=== PATIENT | female | born 1985 | race Caucasian/White ===

== ENCOUNTER 2017-05-29 19:14 | Inpatient (IN) | payer MEDICAID ==
[2017-05-29] MEDS ORDERED: Sodium Chloride 0.9% 1,000 ML IV ONE ×2 (19:35)
--- NOTE | 2017-05-29 19:37 | C.PDOC ---
History Of Present Illness 31 y/o female, whose PMH includes anemia, and HTN, who presents to the ED complaining of left sided abdominal pain since a few days associated with fever and diarrhea. Patient denies dysuria, hematuria, shortness of breath, or other complaints. Chief Complaint (Nursing): Abdominal Pain History Per: Patient History/Exam Limitations: no limitations Onset/Duration Of Symptoms: Days Current Symptoms Are (Timing): Still Present Location Of Pain/Discomfort: LLQ Radiation Of Pain To:: None Associated Symptoms: Fever, Diarrhea Alleviating Factors: None Abnormal Vaginal Bleeding: No Last Menstral Period: 05/01/2017 Past Medical History Reviewed: Historical Data, Nursing Documentation, Vital Signs Vital Signs: Last Vital Signs Temp 99.4 F 05/29/17 22:49 Pulse 155 H 05/29/17 22:49 Resp 20 05/29/17 22:49 BP 137/79 05/29/17 22:49 Pulse Ox 99 05/29/17 22:49 - Medical History PMH: Anemia, Bipolar Disorder, Depression, HTN Denies: Chronic Kidney Disease Surgical History: Family History: States: Unknown Family Hx - Social History Hx Tobacco Use: Yes ("some days") Hx Alcohol Use: Yes Hx Substance Use: No - Immunization History Hx Tetanus Toxoid Vaccination: Yes Hx Influenza Vaccination: Yes Hx Pneumococcal Vaccination: No Review Of Systems Except As Marked, All Systems Reviewed And Found Negative. Constitutional: Positive for: Fever Cardiovascular: Negative for: Chest Pain Respiratory: Negative for: Shortness of Breath Gastrointestinal: Positive for: Abdominal Pain (left sided ), Diarrhea Physical Exam - Physical Exam Appears: Well, Non-toxic, No Acute Distress Skin: Normal Color, Warm, Dry Head: Atraumatic, Normacephalic Eye(s): bilateral: Normal Inspection, PERRL, EOMI Cardiovascular: Rhythm Regular Respiratory: Normal Breath Sounds, No Rales, No Rhonchi, No Wheezing Gastrointestinal/Abdominal: Bowel Sounds (active ), Tenderness (left lower quadrant tenderness), No Distention, No Guarding, No Rebound Neurological/Psych: Oriented x3, Normal Motor ED Course And Treatment - Laboratory Results Result Diagrams: 05/29/17 19:41 05/29/17 19:41 O2 Sat by Pulse Oximetry: 95 (room air) Pulse Ox Interpretation: Normal Medical Decision Making Medical Decision Making: Plans: -- CT abdomen and pelvis -- Labs -- Urinalysis Disposition Discussed With DrPalomo: Gasper Anne Doctor Will See Patient In The: Hospital Counseled Patient/Family Regarding: Diagnosis - Disposition Disposition: HOSPITALIZED Disposition Time: 23:12 Condition: STABLE Forms: [facility] (Mauritanian) - POA Present On Arrival: None - Clinical Impression Clinical Impression: Pyelonephritis - Scribe Statement The provider has reviewed the documentation as recorded by the Bety Mosesibe Attestation: Bre Saxena MD Scribe Attestation: All medical record entries made by the Bety were at my direction and personally dictated by me. I have reviewed the chart and agree that the record accurately reflects my personal performance of the history, physical exam, medical decision making, and the department course for this patient. I have also personally directed, reviewed, and agree with the discharge instructions and disposition.
[2017-05-29 19:44] LABS: BASO % 0.2 % (0.0-2.0); EOS % 0.1 % (0.0-4.0); HEMOGLOBIN 12.1 g/dL (11.0-16.0); LYMPH # 0.7 K/uL (1.0-4.3); LYMPH % 4.3 % (20.0-40.0); MEAN CORPUSCULAR HEMOGLOBIN 31.1 pg (27.0-31.0); MEAN CORPUSCULAR HGB CONC 34.6 g/dL (33.0-37.0); MEAN PLATELET VOLUME 8.6 fL (7.2-11.7); MONO # 1.1 K/uL (0.0-0.8); MONO % 6.6 % (0.0-10.0); NEUT # 14.3 K/uL (1.8-7.0); NEUT % 88.8 % (50.0-75.0); PLATELET COUNT 227 K/uL (130-400); RBC 3.88 Mil/uL (3.80-5.20); RED CELL DISTRIBUTION WIDTH 14.1 % (11.5-14.5)
[2017-05-29] MEDS ORDERED: Sodium Chloride 0.9% 2,000 ML ONE (19:44)
[2017-05-29] MEDS ORDERED: Iohexol 240 (50 ml) PO ONE (19:45)
[2017-05-29] MEDS ORDERED: Iohexol 240 (50 ml) ONE (19:55)
[2017-05-29 19:58] LABS: SQUAMOUS EPITHIAL 5 /hpf (0-5); URINE BACTERIA RARE (<OCC); URINE BILIRUBIN NEGATIVE (NEGATIVE); URINE BLOOD 1+ (NEGATIVE); URINE CLARITY Hazy (Clear); URINE COLOR Red (YELLOW); URINE GLUCOSE (UA) NORMAL (Normal); URINE LEUKOCYTE ESTERASE 2+ Leu/uL (Negative); URINE PROTEIN 1+ mg/dL (NEGATIVE); URINE UROBILINOGEN NORMAL mg/dL (0.2-1.0)
[2017-05-29 20:00] LABS: HCG,QUALITATIVE URINE NEGATIVE (NEGATIVE)
[2017-05-29 20:04] LABS: ALB/GLOB RATIO 1.2 (1.0-2.1); ALBUMIN 4.3 g/dL (3.5-5.0); ALT/SGPT 56 U/L (9-52); AST/SGOT 97 U/L (14-36); BLOOD UREA NITROGEN 6 mg/dL (7-17); CALCIUM 8.8 mg/dl (8.6-10.4); GFR AFRICAN-AMERICAN > 60; GFR NON-AFRICAN AMERICAN > 60; LIPASE 75 U/L (23-300)
[2017-05-29 20:19] LABS: ANISOCYTOSIS SLIGHT; BANDS 2 % (0-2); HYPOCHROMIC SLIGHT; LARGE PLATELETS PRESENT; LYMPHOCYTE 2 % (20-40); MICROCYTOSIS SLIGHT; MONOCYTE 7 % (0-10); NEUTROPHIL 89 % (50-75); PLATELET ESTIMATE NORMAL (NORMAL); POIKILOCYTOSIS SLIGHT; TOTAL CELLS COUNTED 100
[2017-05-29] MEDS ORDERED: Iodixanol 320 MG/ML 100 ML BOTTLE IV ONE (20:39)
[2017-05-29] MEDS ORDERED: Ciprofloxacin 400mg/200ml D5W 400 MG/200 ML BAG IVPB STA (20:39)
[2017-05-29] MEDS ORDERED: Ciprofloxacin 400mg/200ml D5W 400 MG/200 ML BAG IVPB ONE (20:46)
--- NOTE | 2017-05-29 22:43 | CT ---
EXAM: CT Abdomen and Pelvis With Intravenous Contrast CLINICAL HISTORY: 31 years old, female; Pain; Abdominal pain; Patient HX: 8; Additional info: Abd pain TECHNIQUE: Axial computed tomography images of the abdomen and pelvis with intravenous contrast. All CT scans at this facility use one or more dose reduction techniques, viz.: automated exposure control; ma/kV adjustment per patient size (including targeted exams where dose is matched to indication; i.e. head); or iterative reconstruction technique. Coronal and sagittal reformatted images were created and reviewed. CONTRAST: 100 mL of [id number] administered intravenously. COMPARISON: CT - ABD PELVIS W/O PO OR IV CONT 2015-11-06 11:58 FINDINGS: Limitations: Motion artifact - mild to moderate. Lower thorax: Probable small hiatal hernia. ABDOMEN: Liver: Unremarkable. No mass. Gallbladder and bile ducts: No calcified stones. No ductal dilation. Pancreas: No ductal dilation. No mass. Spleen: No splenomegaly. Adrenals: No mass. Kidneys and ureters: Minimal stranding about kidneys. Few ill-defined peripheral areas of decreased attenuation within kidneys. No hydronephrosis. Mild urothelial enhancement of renal pelvis and ureters, bilaterally. Stomach and bowel: No definite mural thickening. No obstruction. Appendix: Normal caliber. No inflammation. PELVIS: Bladder: Unremarkable. Reproductive: 1.7 x 1.4 x 1.6 cm peripherally enhancing hypodensity with slightly crenulated margins within LEFT ovary. Small right ovarian follicle. ABDOMEN and PELVIS: Intraperitoneal space: Trace free fluid within pelvis. No free air. Bones/joints: No acute fracture. Soft tissues: Tiny umbilical hernia containing fat. Vasculature: Unremarkable. No aneurysm. Lymph nodes: No pathologically enlarged lymph nodes. IMPRESSION: 1. Findings compatible with pyelonephritis/ureteritis. 2. Involuting or ruptured LEFT ovarian follicle/cyst. 3. Incidental/non-acute findings are described above.
--- NOTE | 2017-05-29 23:42 | CP.PCM.HP ---
<Anamika Sood - Last Filed: 05/30/17 04:05> History of Present Illness - History of Present Illness History of Present Illness: HPI: Patient is a 31 year old female with a past medical history of HTN , bipolar disorder, anxiety, and insomnia, who presents to the ED with complaints of fever, nausea, left abdominal/pelvic pain, headaches, dysuria, increased frequency, and palpitations for the past 3 days. Patient also complains of diarrhea that started approximately 1 week ago. She says she has two episodes of diarrhea daily. She tried taking ibuprofen today, 2 pills in the morning and 2 in the afternoon, with minimal relief. Patient denies chest pain, cough, vomiting, chills, hematuria, hematochezia, rashes, recent illness or sick contacts. Patient's , Nitin, at bedside contributing to history. PMD: none PMHx: HTN, Bipolar disorder, anxiety, insomnia. (previously treated 4 years ago , stopped medications when moving to the ) SurgHx: cesarian section (2001) FamHx: Grandmother- Heart disease, Thyroid disease SocHx: social tobacco and alcohol use; denies drug use; lives in [place] with , Nitin; unemployed. Allergies: NKDA, pork Medications: none Present on Admission - Present on Admission Any Indicators Present on Admission: No Review of Systems - Constitutional Constitutional: Fever, Headache, Weakness. absent: Anorexia, Chills - EENT Eyes: Change in Vision Ears: Dizziness Nose/Mouth/Throat: Sore Throat - Cardiovascular Cardiovascular: Dyspnea, Palpitations. absent: Chest Pain, Leg Edema - Respiratory Respiratory: Dyspnea. absent: Cough, Hemoptysis, Excessive Mucous Production - Gastrointestinal Gastrointestinal: Abdominal Pain (B/L lower quadrant L>R), Diarrhea, Nausea. absent: Constipation, Hematemesis, Hematochezia, Melena, Vomiting - Genitourinary Genitourinary: Dysuria, Urinary Frequency. absent: Hematuria - Musculoskeletal Musculoskeletal: Back Pain (lower back pain b/l) - Integumentary Integumentary: absent: Rash - Neurological Neurological: Dizziness, Headaches - Endocrine Endocrine: Palpitations Past Patient History - Infectious Disease Hx of Infectious Diseases: None - Past Social History Smoking Status: Current Some Days Smoker - CARDIAC Hx Hypertension: Yes - PULMONARY Hx Respiratory Disorders: Yes Hx Tuberculosis: Yes (treated 2000) - NEUROLOGICAL Hx Neurological Disorder: No - HEENT Hx HEENT Problems: No - RENAL Hx Chronic Kidney Disease: No - ENDOCRINE/METABOLIC Hx Endocrine Disorders: No - HEMATOLOGICAL/ONCOLOGICAL Hx Anemia: Yes - INTEGUMENTARY Hx Dermatological Problems: No - MUSCULOSKELETAL/RHEUMATOLOGICAL Hx Musculoskeletal Disorders: Yes Hx Back Pain: Yes - GASTROINTESTINAL Hx Gastrointestinal Disorders: No - GENITOURINARY/GYNECOLOGICAL Hx Genitourinary Disorders: No - PSYCHIATRIC Hx Bipolar Disorder: Yes Hx Depression: Yes Hx Substance Use: No - SURGICAL HISTORY Hx Surgeries: Yes Hx Section: Yes - ANESTHESIA Hx Anesthesia: Yes Hx Anesthesia Reactions: No Meds Allergies/Adverse Reactions: Allergies Allergy/AdvReac Type Severity Reaction Status Date / Time PORK AdvReac VOMITING Verified 05/29/17 19:21 Physical Exam - Constitutional Appears: No Acute Distress - Head Exam Head Exam: ATRAUMATIC, NORMAL INSPECTION - Eye Exam Eye Exam: EOMI, Normal appearance, PERRL - ENT Exam ENT Exam: Mucous Membranes Moist - Respiratory Exam Respiratory Exam: Clear to Auscultation Bilateral, NORMAL BREATHING PATTERN. absent: Rales, Rhonchi, Wheezes, Respiratory Distress - Cardiovascular Exam Cardiovascular Exam: Tachycardia, +S1, +S2 - GI/Abdominal Exam GI & Abdominal Exam: Normal Bowel Sounds, Soft, Tenderness (B/L lower quadrant and pelvic pain with palpation, L>R). absent: Distended, Firm - Extremities Exam Extremities exam: Positive for: tenderness (left plantar- tender to palpation of the calcaneus and arch.), pedal pulses present. Negative for: calf tenderness, pedal edema - Back Exam Back exam: tenderness (lower back/lumbar region, pain with palpation- b/l, midline). absent: rash noted - Neurological Exam Neurological exam: Alert, Oriented x3 - Psychiatric Exam Psychiatric exam: Normal Affect, Normal Mood - Skin Skin Exam: Dry, Intact, Normal Color, Warm Results - Vital Signs Recent Vital Signs: Last Vital Signs Temp 103.5 F H 05/29/17 23:28 Pulse 145 H 05/29/17 23:28 Resp 24 05/29/17 23:28 BP 137/79 05/29/17 23:28 Pulse Ox 96 05/29/17 23:28 - Labs Result Diagrams: 05/29/17 19:41 05/29/17 19:41 Labs: Laboratory Results - last 24 hr 05/29/17 05/29/17 05/29/17 19:41 19:41 19:41 WBC 16.0 H D RBC 3.88 Hgb 12.1 Hct 34.9 MCV 90.0 D MCH 31.1 H MCHC 34.6 RDW 14.1 Plt Count 227 MPV 8.6 Neut % (Auto) 88.8 H Lymph % (Auto) 4.3 L [place] % (Auto) 6.6 Eos % (Auto) 0.1 Baso % (Auto) 0.2 Neut # (Auto) 14.3 H Lymph # (Auto) 0.7 L [place] # (Auto) 1.1 H Eos # (Auto) 0.0 Baso # (Auto) 0.0 Neutrophils % (Manual) 89 H Band Neutrophils % 2 Lymphocytes % (Manual) 2 L Monocytes % (Manual) 7 Platelet Estimate Normal Large Platelets Present Hypochromasia (manual) Slight Poikilocytosis (manual Slight Anisocytosis (manual) Slight Microcytosis (manual) Slight Macrocytosis (manual) Slight Sodium 133 Potassium 3.5 L Chloride 101 Carbon Dioxide 19 L Anion Gap 16 BUN 6 L Creatinine 0.7 Est GFR ( Amer) > 60 Est GFR (Non-Af Amer) > 60 Random Glucose 103 Calcium 8.8 Total Bilirubin 1.5 H AST 97 H ALT 56 H D Alkaline Phosphatase 93 Total Protein 8.0 Albumin 4.3 Globulin 3.7 Albumin/Globulin Ratio 1.2 Lipase 75 Urine Color Red Urine Clarity Hazy Urine pH 7.0 Ur Specific [place] 1.006 Urine Protein 1+ H Urine Glucose (UA) Normal Urine Ketones Trace Urine Blood 1+ H Urine Nitrate Negative Urine Bilirubin Negative Urine Urobilinogen Normal Ur Leukocyte Esterase 2+ H Urine WBC (Auto) 119 H Urine RBC (Auto) 4 H Ur Squamous Epith Cells 5 Urine Bacteria Rare Urine HCG, Qual Negative Assessment & Plan (1) Pyelonephritis Assessment and Plan: Leukocytosis at admission: WBC 16, Bands 2 Febrile at admission 103.5. Tylenol given in the ED. Afebrile during examination Lactate: 1.9 UA: 2+ LE, 1+ protein/blood, trace ketones, WBC 119, RBC 4, squam 5 Abdomen/pelvis CT: finding compatible w/pyelonephritis/ureteritis; involuting or ruptured left ovarian follicle/cyst Urine cx: f/u results Blood cx: f/u results NS@100mls/hr Ibuprofen 400mg PO Q6 prn Ciprofloxacin 400mg IV Q12h (active 05/29/17) Status: Acute (2) Hypertension Assessment and Plan: Hx of HTN; patient has not taken medications for HTN 4 years. Currently normal blood pressure Monitor vitals. Will treat as needed. Status: Acute (3) Bipolar disorder Assessment and Plan: Hx of Bipolar Disorder; patient has not taken medications for 4 years. Status: Acute (4) Prophylactic measure Assessment and Plan: DVT: SCDs, Heparin 5000sc Q12h GI: Pepcid Heart Healthy Diet, 2gm Na Status: Acute <Gasper Anne - Last Filed: 05/30/17 06:33> Results - Vital Signs Recent Vital Signs: Last Vital Signs Temp 98.9 F 05/30/17 00:35 Pulse 108 H 05/30/17 00:35 Resp 20 05/30/17 00:35 BP 90/60 L 05/30/17 00:35 Pulse Ox 96 05/30/17 00:35 - Labs Result Diagrams: 05/29/17 19:41 05/29/17 19:41 Labs: Laboratory Results - last 24 hr 05/29/17 05/29/17 05/29/17 19:41 19:41 19:41 WBC 16.0 H D RBC 3.88 Hgb 12.1 Hct 34.9 MCV 90.0 D MCH 31.1 H MCHC 34.6 RDW 14.1 Plt Count 227 MPV 8.6 Neut % (Auto) 88.8 H Lymph % (Auto) 4.3 L [place] % (Auto) 6.6 Eos % (Auto) 0.1 Baso % (Auto) 0.2 Neut # (Auto) 14.3 H Lymph # (Auto) 0.7 L [place] # (Auto) 1.1 H Eos # (Auto) 0.0 Baso # (Auto) 0.0 Neutrophils % (Manual) 89 H Band Neutrophils % 2 Lymphocytes % (Manual) 2 L Monocytes % (Manual) 7 Platelet Estimate Normal Large Platelets Present Hypochromasia (manual) Slight Poikilocytosis (manual Slight Anisocytosis (manual) Slight Microcytosis (manual) Slight Macrocytosis (manual) Slight Sodium 133 Potassium 3.5 L Chloride 101 Carbon Dioxide 19 L Anion Gap 16 BUN 6 L Creatinine 0.7 Est GFR ( Amer) > 60 Est GFR (Non-Af Amer) > 60 POC Glucose (mg/dL) Random Glucose 103 Lactic Acid Calcium 8.8 Total Bilirubin 1.5 H AST 97 H ALT 56 H D Alkaline Phosphatase 93 Total Protein 8.0 Albumin 4.3 Globulin 3.7 Albumin/Globulin Ratio 1.2 Lipase 75 Urine Color Red Urine Clarity Hazy Urine pH 7.0 Ur Specific [place] 1.006 Urine Protein 1+ H Urine Glucose (UA) Normal Urine Ketones Trace Urine Blood 1+ H Urine Nitrate Negative Urine Bilirubin Negative Urine Urobilinogen Normal Ur Leukocyte Esterase 2+ H Urine WBC (Auto) 119 H Urine RBC (Auto) 4 H Ur Squamous Epith Cells 5 Urine Bacteria Rare Urine HCG, Qual Negative 05/29/17 05/30/17 23:51 00:04 WBC RBC Hgb Hct MCV MCH MCHC RDW Plt Count MPV Neut % (Auto) Lymph % (Auto) [place] % (Auto) Eos % (Auto) Baso % (Auto) Neut # (Auto) Lymph # (Auto) [place] # (Auto) Eos # (Auto) Baso # (Auto) Neutrophils % (Manual) Band Neutrophils % Lymphocytes % (Manual) Monocytes % (Manual) Platelet Estimate Large Platelets Hypochromasia (manual) Poikilocytosis (manual Anisocytosis (manual) Microcytosis (manual) Macrocytosis (manual) Sodium Potassium Chloride Carbon Dioxide Anion Gap BUN Creatinine Est GFR ( Amer) Est GFR (Non-Af Amer) POC Glucose (mg/dL) 116 H Random Glucose Lactic Acid 1.9 Calcium Total Bilirubin AST ALT Alkaline Phosphatase Total Protein Albumin Globulin Albumin/Globulin Ratio Lipase Urine Color Urine Clarity Urine pH Ur Specific [place] Urine Protein Urine Glucose (UA) Urine Ketones Urine Blood Urine Nitrate Urine Bilirubin Urine Urobilinogen Ur Leukocyte Esterase Urine WBC (Auto) Urine RBC (Auto) Ur Squamous Epith Cells Urine Bacteria Urine HCG, Qual Assessment & Plan - Date & Time Date: 05/30/17 (I have seen and examined the patient. I agree with the findings and plan of care as documented by Dr. Sood. Patient with pyelonephritis and positive for SIRS criteria. Monitor for hemodynamic stability. IVF. Cipro IV. Check urine and blood cultures. Lactate negative. Monitor for acute changes.) Time: 06:31 Attending/Attestation - Attestation I have personally seen and examined this patient.: Yes I have fully participated in the care of the patient.: Yes I have reviewed all pertinent clinical information: Yes
[2017-05-30 02:01] VITALS: RESP 20
[2017-05-30 08:07] LABS: BASO % 0.2 % (0.0-2.0); LYMPH # 0.6 K/uL (1.0-4.3); LYMPH % 4.1 % (20.0-40.0); MEAN CELL VOLUME 90.1 fL (81.0-99.0); MEAN CORPUSCULAR HEMOGLOBIN 30.8 pg (27.0-31.0); MEAN CORPUSCULAR HGB CONC 34.2 g/dL (33.0-37.0); MEAN PLATELET VOLUME 9.1 fL (7.2-11.7); MONO # 0.7 K/uL (0.0-0.8); MONO % 5.3 % (0.0-10.0); NEUT # 12.3 K/uL (1.8-7.0); NEUT % 90.4 % (50.0-75.0); PLATELET COUNT 191 K/uL (130-400); RBC 3.27 Mil/uL (3.80-5.20); RED CELL DISTRIBUTION WIDTH 13.7 % (11.5-14.5); WHITE BLOOD COUNT 13.6 K/uL (4.8-10.8)
[2017-05-30 08:23] LABS: HEMOGLOBIN 10.1 g/dL (11.0-16.0)
[2017-05-30 08:25] LABS: ALB/GLOB RATIO 1.1 (1.0-2.1); ALBUMIN 3.4 g/dL (3.5-5.0); ALT/SGPT 62 U/L (9-52); AST/SGOT 70 U/L (14-36); BLOOD UREA NITROGEN 3 mg/dL (7-17); CALCIUM 8.3 mg/dl (8.6-10.4); GFR AFRICAN-AMERICAN > 60; GFR NON-AFRICAN AMERICAN > 60
[2017-05-30] MEDS: Lactated Ringer's 1,000 ML IV SCH ×2 (08:30→17:45)
[2017-05-30 08:40] LABS: BANDS 2 % (0-2); LYMPHOCYTE 3 % (20-40); MONOCYTE 3 % (0-10); NEUTROPHIL 92 % (50-75); PLATELET ESTIMATE NORMAL (NORMAL); TOTAL CELLS COUNTED 100
[2017-05-30] MEDS ORDERED: Potassium Chloride 20 mEq ER Tab PO ONE ×3 (08:49→17:03)
--- NOTE | 2017-05-30 09:28 | CP.PCM.PN ---
Subjective - Date & Time of Evaluation Date of Evaluation: 05/30/17 Time of Evaluation: 09:25 - Subjective Subjective: Medical Attending Note: Patient seen and examined at bedside. Patient reports she had fever earlier. Patient denies chest pain, denies palptiations, denies nausea, denies vomitting, and reports right lower abdominal pain and left flank pain, reports dysuria, smelly urine, denies hematuria. Patient reports left flank pain started on . Patient reports she is menstruating female, last period, May 02 and expected to have her period today. Objective - Vital Signs/Intake and Output Vital Signs (last 24 hours): Temp Pulse Resp BP Pulse Ox 99.4 F 103 H 20 98/63 L 97 05/30/17 07:50 05/30/17 07:50 05/30/17 07:50 05/30/17 07:50 05/30/17 07:50 Intake and Output: 05/30/17 05/30/17 06:59 18:59 Intake Total 950 Balance 950 - Medications Medications: Current Medications Famotidine (Pepcid) 20 mg PO BID [facility] Heparin Sodium (Porcine) (Heparin) 5,000 units SC Q12 ZAINAB Ciprofloxacin (Cipro 400mg/200ml Dsw) 400 mg in 200 mls @ 133 mls/hr IVPB Q12H ZAINAB PRN Reason: Protocol Lactated Ringer's (Lactated Ringer's) 1,000 mls @ 100 mls/hr IV .Q10H ZAINAB Ibuprofen (Motrin Tab) 400 mg PO Q6 PRN PRN Reason: Fever >100.4 F Last Admin: 05/30/17 06:30 Dose: 400 mg Pneumococcal Polyvalent Vaccine (Pneumovax 23 Vaccine) 0.5 ml IM .ONCE ONE Stop: 05/31/17 10:01 Saccharomyces Boulardii (Florastor) 250 mg PO BID ZAINAB - Labs Labs: 05/30/17 07:53 05/30/17 07:53 - Constitutional Appears: Non-toxic, In Acute Distress - Head Exam Head Exam: NORMAL INSPECTION - Eye Exam Eye Exam: EOMI - ENT Exam ENT Exam: Mucous Membranes Dry - Respiratory Exam Respiratory Exam: Clear to Ausculation Bilateral, NORMAL BREATHING PATTERN. absent: Rales, Rhonchi, Wheezes - Cardiovascular Exam Cardiovascular Exam: REGULAR RHYTHM, +S1, +S2 - GI/Abdominal Exam GI & Abdominal Exam: Soft, Tenderness (right lower quadrant), Normal Bowel Sounds. absent: Distended, Firm, Guarding, Rigid, Rebound Additional comments: negative supapubic tenderness left flank tenderness on examinations right lower quadrant-pain on palpation - Extremities Exam Extremities Exam: absent: Pedal Edema, Tenderness - Back Exam Back Exam: CVA tenderness (L). absent: rash noted - Neurological Exam Neurological Exam: Alert, Awake, Oriented x3 - Psychiatric Exam Psychiatric exam: Normal Affect, Normal Mood - Skin Skin Exam: Dry, Intact, Normal Color, Warm Assessment and Plan (1) SIRS (systemic inflammatory response syndrome) Status: Acute (2) Pyelonephritis Status: Acute (3) Right lower quadrant pain Status: Acute (4) Bipolar disorder Status: Chronic (5) Hypertension Status: Chronic (6) Prophylactic measure Status: Acute Attending/Attestation - Attestation I have personally seen and examined this patient.: Yes I have fully participated in the care of the patient.: Yes I have reviewed all pertinent clinical information, including history, physical exam and plan: Yes Notes (Text): 1) SIRS Assessment/Plan * Criteria: Tmax: 103F, leukocytosis suspected source of infection: pyleonephritis * CT Abdomen/Pelvis (05/29/17) with PO and IV contrast: findings compatible with pyelonephritis/ureteritis. involuting or ruptured left ovarian follice/cyst. Incidental findings non-acute findings * Ciprofloxacin 400mg [id number] (active since 05/30/17) * Flagyl 500mg IVQ8H (active since 05/30/17) * LR; 100cc/hr * Florastor 250mg PO BID * Tylenol 650mg PO Q6H PRN fever * Blood cultures (05/29/17): pending * UA: pyuria, hematuria, esterase * Urine culture (05/29/17): pending 2) Pyleonephritis Assessment/Plan * Criteria: Tmax: 103F, leukocytosis suspected source of infection: pyleonephritis * CT Abdomen/Pelvis (05/29/17) with PO and IV contrast: findings compatible with pyelonephritis/ureteritis. involuting or ruptured left ovarian follice/cyst. Incidental findings non-acute findings * Ciprofloxacin 400mg [id number] (active since 05/30/17) * Flagyl 500mg IVQ8H (active since 05/30/17) * LR; 100cc/hr * Florastor 250mg PO BID * Tylenol 650mg PO Q6H PRN fever * Blood cultures (05/29/17): pending * UA: pyuria, hematuria, esterase * Urine culture (05/29/17): pending 3) Right lower quadrant pain Assessment/Plan * CT Abdomen/Pelvis (05/29/17) with PO and IV contrast: findings compatible with pyelonephritis/ureteritis. involuting or ruptured left ovarian follice/cyst. Incidental findings non-acute findings * Ciprofloxacin 400mg [id number] (active since 05/30/17) * Flagyl 500mg IVQ8H (active since 05/30/17) * LR; 100cc/hr * Florastor 250mg PO BID * Tylenol 650mg PO Q6H PRN fever * Blood cultures (05/29/17): pending * UA: pyuria, hematuria, esterase * Urine culture (05/29/17): pending * Abdominal US: pending 4) Hypokalemia Assessment/Plan * pending Mg2++ * monitor and replete 5) Hypertension Assessment/Plan * No anti-hypertensives medications * LR 100cc/hr * Monitor vital signs 6) History of Bipolar Disorder Assessment/Plan * patient is not taking medications currently 7) Prophylactic measure Assessment/Plan * Heparin 5000 units [id number] * Pepcid 20mg PO BID * LR 100cc/hr * Florastor 250mg PO BID
[2017-05-30] MEDS: Ciprofloxacin 400mg/200ml D5W 400 MG/200 ML BAG IVPB SCH ×2 (10:30→21:39)
[2017-05-30] MEDS: Saccharomyces Boulardi 250 mg Cap PO SCH ×2 (10:31→18:05)
--- NOTE | 2017-05-30 10:51 | RAD ---
HISTORY: baseline COMPARISON: No prior. FINDINGS: LUNGS: No active pulmonary disease. PLEURA: No significant pleural effusion identified, no pneumothorax apparent. CARDIOVASCULAR: Normal. OSSEOUS STRUCTURES: No significant abnormalities. VISUALIZED UPPER ABDOMEN: Normal. OTHER FINDINGS: None. IMPRESSION: No active disease.
[2017-05-30] MEDS: metroNIDAZOLE IV 500 mg/100 ml 500 MG/100 ML BAG IVPB SCH ×2 (12:00→20:44)
[2017-05-30] MEDS ORDERED: Sodium Chloride 0.9% 1,000 ML IV ONE (17:02)
[2017-05-31] MEDS: metroNIDAZOLE IV 500 mg/100 ml 500 MG/100 ML BAG IVPB SCH ×2 (03:15→12:36)
[2017-05-31] MEDS: Lactated Ringer's 1,000 ML IV SCH ×5 (03:45→22:50)
[2017-05-31 08:52] LABS: BASO % 0.4 % (0.0-2.0); EOS % 0.1 % (0.0-4.0); HEMOGLOBIN 10.4 g/dL (11.0-16.0); LYMPH # 0.6 K/uL (1.0-4.3); LYMPH % 5.5 % (20.0-40.0); MEAN CELL VOLUME 90.1 fL (81.0-99.0); MEAN CORPUSCULAR HEMOGLOBIN 31.3 pg (27.0-31.0); MEAN CORPUSCULAR HGB CONC 34.7 g/dL (33.0-37.0); MEAN PLATELET VOLUME 9.4 fL (7.2-11.7); MONO # 0.6 K/uL (0.0-0.8); MONO % 5.4 % (0.0-10.0); NEUT % 88.6 % (50.0-75.0); PLATELET COUNT 193 K/uL (130-400); RBC 3.33 Mil/uL (3.80-5.20); RED CELL DISTRIBUTION WIDTH 14.2 % (11.5-14.5); WHITE BLOOD COUNT 10.2 K/uL (4.8-10.8)
[2017-05-31 09:06] LABS: ALBUMIN 3.5 g/dL (3.5-5.0); ALT/SGPT 61 U/L (9-52); AST/SGOT 49 U/L (14-36); BLOOD UREA NITROGEN 2 mg/dL (7-17); CALCIUM 8.9 mg/dl (8.6-10.4); GFR AFRICAN-AMERICAN > 60; GFR NON-AFRICAN AMERICAN > 60
[2017-05-31] MEDS: Saccharomyces Boulardi 250 mg Cap PO SCH ×2 (09:57→17:28)
[2017-05-31] MEDS: Ciprofloxacin 400mg/200ml D5W 400 MG/200 ML BAG IVPB SCH ×2 (09:58→21:39)
[2017-05-31] MEDS ORDERED: Pneumococcal 23-Valent Vaccine IM ONE (10:00)
[2017-05-31 10:07] LABS: ANISOCYTOSIS SLIGHT; BANDS 1 % (0-2); BASOPHIL 1 % (0-2); HYPOCHROMIC SLIGHT; LYMPHOCYTE 6 % (20-40); MONOCYTE 3 % (0-10); NEUTROPHIL 89 % (50-75); PLATELET ESTIMATE NORMAL (NORMAL); POIKILOCYTOSIS SLIGHT; TOTAL CELLS COUNTED 100
[2017-05-31] MEDS ORDERED: Potassium Chloride 20 mEq ER Tab PO ONE (11:30)
[2017-05-31 12:06] LABS: HEPATITIS B SURFACE AG Negative (NEGATIVE)
[2017-05-31 12:12] LABS: HEPATITIS A IGM NEGATIVE (NEGATIVE); HEPATITIS B CORE AB NEGATIVE (NEGATIVE)
[2017-05-31 12:23] LABS: HEPATITIS C ANTIBODY NEGATIVE (NEGATIVE)
--- NOTE | 2017-05-31 12:59 | CP.PCM.PN ---
<JongDrew Galilea - Last Filed: 05/31/17 13:47> Subjective - Date & Time of Evaluation Date of Evaluation: 05/31/17 Time of Evaluation: 08:50 - Subjective Subjective: PGY-[address] Jan Desai. No acute events overnight. Patient states her lower right abdominal pain has improved from admission and that it's improved slightly everyday. She says she felt a subjective fever overnight. She did not offer any other complaints. She is eating well, going to the bathroom normally, ambulating without difficulty and sleeping well. Denies chest pain, SOB, diarrhea, chills, nausea, vomiting. Objective - Vital Signs/Intake and Output Vital Signs (last 24 hours): Temp Pulse Resp BP Pulse Ox 98.8 F 85 20 92/60 L 96 05/31/17 07:51 05/31/17 07:51 05/31/17 07:51 05/31/17 07:51 05/31/17 07:51 Intake and Output: 05/31/17 05/31/17 06:59 18:59 Intake Total 1200 Balance 1200 - Medications Medications: Current Medications Famotidine (Pepcid) 20 mg PO BID [facility] Last Admin: 05/31/17 09:57 Dose: 20 mg Heparin Sodium (Porcine) (Heparin) 5,000 units SC Q12 [facility] Last Admin: 05/31/17 09:57 Dose: 5,000 units Ciprofloxacin (Cipro 400mg/200ml Dsw) 400 mg in 200 mls @ 133 mls/hr IVPB Q12H [facility] PRN Reason: Protocol Last Admin: 05/31/17 09:58 Dose: 133 mls/hr Lactated Ringer's (Lactated Ringer's) 1,000 mls @ 100 mls/hr IV .Q10H [facility] Last Admin: 05/31/17 06:00 Dose: 100 mls/hr Ibuprofen (Motrin Tab) 400 mg PO Q6H [facility] Stop: 06/01/17 10:30 Last Admin: 05/31/17 11:30 Dose: 400 mg Saccharomyces Boulardii (Florastor) 250 mg PO BID [facility] Last Admin: 05/31/17 09:57 Dose: 250 mg - Labs Labs: 05/31/17 08:38 05/31/17 08:38 - Additional Findings Additional findings: - Constitutional Appears: Non-toxic, In Acute Distress - Head Exam Head Exam: NORMAL INSPECTION - Eye Exam Eye Exam: EOMI - ENT Exam ENT Exam: Mucous Membranes Dry - Respiratory Exam Respiratory Exam: Clear to Ausculation Bilateral, NORMAL BREATHING PATTERN. absent: Rales, Rhonchi, Wheezes - Cardiovascular Exam Cardiovascular Exam: REGULAR RHYTHM, +S1, +S2 - GI/Abdominal Exam GI & Abdominal Exam: Soft, Tenderness (right lower quadrant), Normal Bowel Sounds. absent: Distended, Firm, Guarding, Rigid, Rebound Additional comments: negative supapubic tenderness left flank tenderness on examinations right lower quadrant-pain on palpation - Extremities Exam Extremities Exam: absent: Pedal Edema, Tenderness - Back Exam Back Exam: CVA tenderness (L). absent: rash noted - Neurological Exam Neurological Exam: Alert, Awake, Oriented x3 - Psychiatric Exam Psychiatric exam: Normal Affect, Normal Mood - Skin Skin Exam: Dry, Intact, Normal Color, Warm Assessment and Plan - Assessment and Plan (Free Text) Assessment: 1) SIRS Assessment/Plan * Criteria: Tmax: 103F, leukocytosis suspected source of infection: pyleonephritis * CT Abdomen/Pelvis (05/29/17) with PO and IV contrast: findings compatible with pyelonephritis/ureteritis. involuting or ruptured left ovarian follice/cyst. Incidental findings non-acute findings * Ciprofloxacin 400mg [id number] (active since 05/30/17) * LR; 100cc/hr * Florastor 250mg PO BID * HOLD Tylenol 650mg PO Q6H PRN fever due to elevated LFTs * Schedule Motrin 400mg PO Q6H * Blood cultures (05/29/17): NEGATIVE up to date * UA: pyuria, hematuria, esterase * Urine culture (05/29/17): POSITIVE for ecoli * Procalcitonin NEGATIVE 2) Pyleonephritis Assessment/Plan * Criteria: Tmax: 103F, leukocytosis suspected source of infection: pyleonephritis * CT Abdomen/Pelvis (05/29/17) with PO and IV contrast: findings compatible with pyelonephritis/ureteritis. involuting or ruptured left ovarian follice/cyst. Incidental findings non-acute findings * Ciprofloxacin 400mg [id number] (active since 05/30/17) * LR; 100cc/hr * Florastor 250mg PO BID * Blood cultures (05/29/17): NEGATIVE up to date * UA: pyuria, hematuria, esterase * Urine culture (05/29/17): POSITIVE for ecoli * Procalcitonin NEGATIVE 3) Right lower quadrant pain Assessment/Plan * CT Abdomen/Pelvis (05/29/17) with PO and IV contrast: findings compatible with pyelonephritis/ureteritis. involuting or ruptured left ovarian follice/cyst. Incidental findings non-acute findings * Ciprofloxacin 400mg [id number] (active since 05/30/17) * LR; 100cc/hr * Florastor 250mg PO BID * Blood cultures (05/29/17): NEGATIVE up to date * UA: pyuria, hematuria, esterase * Urine culture (05/29/17): POSITIVE for ecoli * Hepatitis Panel NEGATIVE, HIV NEGATIVE, Lipase NORMAL * LFTs Downtrending * Urine HCG NEGATIVE 4) Hypokalemia Assessment/Plan * Mg2++ NORMAL * monitor and replete 5) Hypertension Assessment/Plan * No anti-hypertensives medications * LR 100cc/hr * Monitor vital signs 6) History of Bipolar Disorder Assessment/Plan * patient is not taking medications currently 7) Prophylactic measure Assessment/Plan * Heparin 5000 units [id number] * Pepcid 20mg PO BID * LR 100cc/hr * Florastor 250mg PO BID <Jan Desai - Last Filed: 05/31/17 18:35> Objective - Vital Signs/Intake and Output Vital Signs (last 24 hours): Temp Pulse Resp BP Pulse Ox 98.5 F 73 20 96/60 L 98 05/31/17 16:00 05/31/17 16:00 05/31/17 16:00 05/31/17 16:00 05/31/17 16:00 Intake and Output: 05/31/17 05/31/17 06:59 18:59 Intake Total 1200 1330 Balance 1200 1330 - Medications Medications: Current Medications Famotidine (Pepcid) 20 mg PO BID [facility] Last Admin: 05/31/17 17:28 Dose: 20 mg Heparin Sodium (Porcine) (Heparin) 5,000 units SC Q12 [facility] Last Admin: 05/31/17 09:57 Dose: 5,000 units Ciprofloxacin (Cipro 400mg/200ml Dsw) 400 mg in 200 mls @ 133 mls/hr IVPB Q12H [facility] PRN Reason: Protocol Last Admin: 05/31/17 09:58 Dose: 133 mls/hr Lactated Ringer's (Lactated Ringer's) 1,000 mls @ 100 mls/hr IV .Q10H [facility] Last Admin: 05/31/17 14:22 Dose: Not Given Ibuprofen (Motrin Tab) 400 mg PO Q6H [facility] Stop: 06/01/17 10:30 Last Admin: 05/31/17 17:28 Dose: 400 mg Saccharomyces Boulardii (Florastor) 250 mg PO BID [facility] Last Admin: 05/31/17 17:28 Dose: 250 mg - Labs Labs: 05/31/17 08:38 05/31/17 08:38 Attending/Attestation - Attestation I have personally seen and examined this patient.: Yes I have fully participated in the care of the patient.: Yes I have reviewed all pertinent clinical information, including history, physical exam and plan: Yes Notes (Text): 05/31/17 18:32 Patient was seen and examined at 3:10 PM 05/31/17 368 A. Exam, assessment and plan were gone over with the resident. Also on ROS: NO n/v NO abdominal pain NO CHAVEZ Negligible pain with urination NO chest pain NO palpitations Also on Exam: Bilateral CVA tenderness mild HIV negative Hepatitis Panel negative If NO fever, blood culture continues to be negative then we will discharge morning 06/01/17 Jan Desai D.O.
[2017-06-01 07:26] LABS: BASO % 0.4 % (0.0-2.0); EOS % 0.5 % (0.0-4.0); HEMOGLOBIN 9.7 g/dL (11.0-16.0); LYMPH # 0.7 K/uL (1.0-4.3); LYMPH % 10.5 % (20.0-40.0); MEAN CELL VOLUME 90.6 fL (81.0-99.0); MEAN CORPUSCULAR HGB CONC 34.3 g/dL (33.0-37.0); MEAN PLATELET VOLUME 9.5 fL (7.2-11.7); MONO # 0.6 K/uL (0.0-0.8); MONO % 9.7 % (0.0-10.0); NEUT # 5.2 K/uL (1.8-7.0); NEUT % 78.9 % (50.0-75.0); RBC 3.12 Mil/uL (3.80-5.20); RED CELL DISTRIBUTION WIDTH 14.1 % (11.5-14.5); WHITE BLOOD COUNT 6.6 K/uL (4.8-10.8)
[2017-06-01 07:42] VITALS: BP 110/72; PULSE 85; TEMP 99; O2SAT 96
[2017-06-01 07:52] LABS: ALBUMIN 3.2 g/dL (3.5-5.0); ALT/SGPT 50 U/L (9-52); AST/SGOT 28 U/L (14-36); BLOOD UREA NITROGEN 4 mg/dL (7-17); CALCIUM 8.5 mg/dl (8.6-10.4); GFR AFRICAN-AMERICAN > 60; GFR NON-AFRICAN AMERICAN > 60
[2017-06-01] MEDS: Saccharomyces Boulardi 250 mg Cap PO SCH (09:49)
[2017-06-01] MEDS: Ciprofloxacin 400mg/200ml D5W 400 MG/200 ML BAG IVPB SCH (09:54)
[2017-06-01] MEDS: Lactated Ringer's 1,000 ML IV SCH (09:59)
--- NOTE | 2017-06-01 10:10 | CP.PCM.DIS ---
<Drew Sunshine - Last Filed: 06/01/17 10:05> Provider - Provider Date of Admission: 05/29/17 23:14 Attending physician: Gasper Anne MD Primary care physician: PMD: none Time Spent in preparation of Discharge (in minutes): 33 Hospital Course - Lab Results Lab Results: Micro Results 05/29/17 23:00 Blood Blood Culture - Preliminary NO GROWTH AFTER 48 HOURS 05/29/17 22:30 Blood Blood Culture - Preliminary NO GROWTH AFTER 48 HOURS 05/29/17 20:39 Urine,Clean Catch Urine Culture - Final Escherichia Coli Most Recent Lab Values WBC 6.6 K/uL (4.8-10.8) 06/01/17 07:08 RBC 3.12 Mil/uL (3.80-5.20) L 06/01/17 07:08 Hgb 9.7 g/dL (11.0-16.0) L 06/01/17 07:08 Hct 28.3 % (34.0-47.0) L 06/01/17 07:08 MCV 90.6 fL (81.0-99.0) 06/01/17 07:08 MCH 31.0 pg (27.0-31.0) 06/01/17 07:08 MCHC 34.3 g/dL (33.0-37.0) 06/01/17 07:08 RDW 14.1 % (11.5-14.5) 06/01/17 07:08 Plt Count 169 K/uL (130-400) 06/01/17 07:08 MPV 9.5 fL (7.2-11.7) 06/01/17 07:08 Neut % (Auto) 78.9 % (50.0-75.0) H 06/01/17 07:08 Lymph % (Auto) 10.5 % (20.0-40.0) L 06/01/17 07:08 Trigg % (Auto) 9.7 % (0.0-10.0) 06/01/17 07:08 Eos % (Auto) 0.5 % (0.0-4.0) 06/01/17 07:08 Baso % (Auto) 0.4 % (0.0-2.0) 06/01/17 07:08 Neut # (Auto) 5.2 K/uL (1.8-7.0) 06/01/17 07:08 Lymph # (Auto) 0.7 K/uL (1.0-4.3) L 06/01/17 07:08 Trigg # (Auto) 0.6 K/uL (0.0-0.8) 06/01/17 07:08 Eos # (Auto) 0.0 K/uL (0.0-0.7) 06/01/17 07:08 Baso # (Auto) 0.0 K/uL (0.0-0.2) 06/01/17 07:08 Neutrophils % (Manual) 89 % (50-75) H 05/31/17 08:38 Band Neutrophils % 1 % (0-2) 05/31/17 08:38 Lymphocytes % (Manual) 6 % (20-40) L 05/31/17 08:38 Monocytes % (Manual) 3 % (0-10) 05/31/17 08:38 Basophils % (Manual) 1 % (0-2) 05/31/17 08:38 Platelet Estimate Normal (NORMAL) 05/31/17 08:38 Large Platelets Present 05/29/17 19:41 RBC Morphology Normal 05/30/17 07:53 Hypochromasia (manual) Slight 05/31/17 08:38 Poikilocytosis (manual Slight 05/31/17 08:38 Anisocytosis (manual) Slight 05/31/17 08:38 Microcytosis (manual) Slight 05/29/17 19:41 Macrocytosis (manual) Slight 05/29/17 19:41 Sodium 138 mmol/L (132-148) 06/01/17 07:08 Potassium 3.6 mmol/L (3.6-5.2) 06/01/17 07:08 Chloride 104 mmol/L (98-107) 06/01/17 07:08 Carbon Dioxide 21 mmol/L (22-30) L 06/01/17 07:08 Anion Gap 16 (10-20) 06/01/17 07:08 BUN 4 mg/dL (7-17) L 06/01/17 07:08 Creatinine 0.8 mg/dL (0.7-1.2) 06/01/17 07:08 Est GFR ( Amer) > 60 06/01/17 07:08 Est GFR (Non-Af Amer) > 60 06/01/17 07:08 POC Glucose (mg/dL) 116 mg/dL (65-110) H 05/29/17 23:51 Random Glucose 93 mg/dL (65-105) 06/01/17 07:08 Lactic Acid 1.9 mmol/L (0.7-2.1) 05/30/17 00:04 Calcium 8.5 mg/dl (8.6-10.4) L 06/01/17 07:08 Phosphorus 3.9 mg/dL (2.5-4.5) 06/01/17 07:08 Magnesium 1.9 mg/dL (1.6-2.3) 06/01/17 07:08 Total Bilirubin 0.4 mg/dL (0.2-1.3) 06/01/17 07:08 AST 28 U/L (14-36) 06/01/17 07:08 ALT 50 U/L (9-52) 06/01/17 07:08 Alkaline Phosphatase 91 U/L (38-126) 06/01/17 07:08 Total Protein 6.4 g/dL (6.3-8.3) 06/01/17 07:08 Albumin 3.2 g/dL (3.5-5.0) L 06/01/17 07:08 Globulin 3.2 gm/dL (2.2-3.9) 06/01/17 07:08 Albumin/Globulin Ratio 1.0 (1.0-2.1) 06/01/17 07:08 Lipase 75 U/L (23-300) 05/29/17 19:41 Procalcitonin 0.33 NG/ML (0.19-0.49) 05/31/17 08:38 Urine Color Red (YELLOW) 05/29/17 19:41 Urine Clarity Hazy (Clear) 05/29/17 19:41 Urine pH 7.0 (5.0-8.0) 05/29/17 19:41 Ur Specific [place] 1.006 (1.003-1.030) 05/29/17 19:41 Urine Protein 1+ mg/dL (NEGATIVE) H 05/29/17 19:41 Urine Glucose (UA) Normal mg/dL (Normal) 05/29/17 19:41 Urine Ketones Trace mg/dL (NEGATIVE) 05/29/17 19:41 Urine Blood 1+ (NEGATIVE) H 05/29/17 19:41 Urine Nitrate Negative (NEGATIVE) 05/29/17 19:41 Urine Bilirubin Negative (NEGATIVE) 18 19:41 Urine Urobilinogen Normal mg/dL (0.2-1.0) 18 19:41 Ur Leukocyte Esterase 2+ Anitra/uL (Negative) H 05/29/17 19:41 Urine WBC (Auto) 119 /hpf (0-5) H 18 19:41 Urine RBC (Auto) 4 /hpf (0-3) H 05/29/17 19:41 Ur Squamous Epith Cells 5 /hpf (0-5) 05/29/17 19:41 Urine Bacteria Rare (<OCC) 05/29/17 19:41 Urine HCG, Qual Negative (NEGATIVE) 05/29/17 19:41 Hepatitis A IgM Ab Negative (NEGATIVE) 05/31/17 10:59 Hep Bs Antigen Negative (NEGATIVE) 05/31/17 10:59 Hep B Core IgM Ab Negative (NEGATIVE) 05/31/17 10:59 Hepatitis C Antibody Negative (NEGATIVE) 05/31/17 10:59 HIV 1&2 Antibody Screen Negative (NEGATIVE) 05/31/17 10:59 - Hospital Course Hospital Course: HPI: Patient is a 31 year old female with a past medical history of HTN , bipolar disorder, anxiety, and insomnia, who presents to the ED with complaints of fever, nausea, left abdominal/pelvic pain, headaches, dysuria, increased frequency, and palpitations for the past 3 days. Patient also complains of diarrhea that started approximately 1 week ago. She says she has two episodes of diarrhea daily. She tried taking ibuprofen today, 2 pills in the morning and 2 in the afternoon, with minimal relief. Patient denies chest pain, cough, vomiting, chills, hematuria, hematochezia, rashes, recent illness or sick contacts. Patient's , Nitin, at bedside contributing to history. PMD: none PMHx: HTN, Bipolar disorder, anxiety, insomnia. (previously treated 4 years ago , stopped medications when moving to the ) SurgHx: cesarian section (2001) FamHx: Grandmother- Heart disease, Thyroid disease SocHx: social tobacco and alcohol use; denies drug use; lives in [place] with , Nitin; unemployed. Allergies: NKDA, pork Medications: none HOSPITAL COURSE: Patient had symptoms consistent with pyelonephritis which were corroborated by CT abd/pelvis w/ contrast. She was started on ciprofloxacin 400mg IVP Q12H, florastor and given LR 100cc/hr. Urine culture came back positive for E.Coli. Blood culture are negative after 48 hours. Her Procalcitonin was NEGATIVE. Her hepatitis pane, HIV and lipase were NEGATIVE. Her elevated LFTs responded to fluids. Clinically the patient improved significantly. She was afebrile and the rest of her vitals were normal. I've included the latest progress note for further details about management and results of imagin) SIRS Assessment/Plan * Criteria: Tmax: 103F, leukocytosis suspected source of infection: pyleonephritis * CT Abdomen/Pelvis (05/29/17) with PO and IV contrast: findings compatible with pyelonephritis/ureteritis. involuting or ruptured left ovarian follice/cyst. Incidental findings non-acute findings * Ciprofloxacin 400mg [id number] (active since 05/30/17) * LR; 100cc/hr * Florastor 250mg PO BID * HOLD Tylenol 650mg PO Q6H PRN fever due to elevated LFTs * Schedule Motrin 400mg PO Q6H * Blood cultures (05/29/17): NEGATIVE up to date * UA: pyuria, hematuria, esterase * Urine culture (05/29/17): POSITIVE for ecoli * Procalcitonin NEGATIVE 2) Pyleonephritis Assessment/Plan * Criteria: Tmax: 103F, leukocytosis suspected source of infection: pyleonephritis * CT Abdomen/Pelvis (05/29/17) with PO and IV contrast: findings compatible with pyelonephritis/ureteritis. involuting or ruptured left ovarian follice/cyst. Incidental findings non-acute findings * Ciprofloxacin 400mg [id number] (active since 05/30/17) * LR; 100cc/hr * Florastor 250mg PO BID * Blood cultures (05/29/17): NEGATIVE up to date * UA: pyuria, hematuria, esterase * Urine culture (05/29/17): POSITIVE for ecoli * Procalcitonin NEGATIVE 3) Right lower quadrant pain Assessment/Plan * CT Abdomen/Pelvis (05/29/17) with PO and IV contrast: findings compatible with pyelonephritis/ureteritis. involuting or ruptured left ovarian follice/cyst. Incidental findings non-acute findings * Ciprofloxacin 400mg [id number] (active since 05/30/17) * LR; 100cc/hr * Florastor 250mg PO BID * Blood cultures (05/29/17): NEGATIVE up to date * UA: pyuria, hematuria, esterase * Urine culture (05/29/17): POSITIVE for ecoli * Hepatitis Panel NEGATIVE, HIV NEGATIVE, Lipase NORMAL * LFTs Downtrending * Urine HCG NEGATIVE 4) Hypokalemia Assessment/Plan * Mg2++ NORMAL * monitor and replete 5) Hypertension Assessment/Plan * No anti-hypertensives medications * LR 100cc/hr * Monitor vital signs 6) History of Bipolar Disorder Assessment/Plan * patient is not taking medications currently 7) Prophylactic measure Assessment/Plan * Heparin 5000 units [id number] * Pepcid 20mg PO BID * LR 100cc/hr * Florastor 250mg PO BID Discharge Exam - Additional Findings Additional findings: - Constitutional Appears: Non-toxic, In Acute Distress - Head Exam Head Exam: NORMAL INSPECTION - Eye Exam Eye Exam: EOMI - ENT Exam ENT Exam: Mucous Membranes Dry - Respiratory Exam Respiratory Exam: Clear to Ausculation Bilateral, NORMAL BREATHING PATTERN. absent: Rales, Rhonchi, Wheezes - Cardiovascular Exam Cardiovascular Exam: REGULAR RHYTHM, +S1, +S2 - GI/Abdominal Exam GI & Abdominal Exam: Soft, Tenderness (right lower quadrant), Normal Bowel Sounds. absent: Distended, Firm, Guarding, Rigid, Rebound Additional comments: negative supapubic tenderness very mild left flank tenderness on examinations absent right lower quadrant-pain - Extremities Exam Extremities Exam: absent: Pedal Edema, Tenderness - Back Exam Back Exam: CVA tenderness (L). absent: rash noted - Neurological Exam Neurological Exam: Alert, Awake, Oriented x3 - Psychiatric Exam Psychiatric exam: Normal Affect, Normal Mood - Skin Skin Exam: Dry, Intact, Normal Color, Warm Discharge Plan - Discharge Medications Prescriptions: Ciprofloxacin HCl [Cipro] 500 mg PO BID 12 Days #24 tablet - Follow Up Plan Condition: STABLE Disposition: HOME/ ROUTINE Instructions: Ciprofloxacin (Systemic), Urinary Tract Infection in Women (DC), Dysuria (GEN) Additional Instructions: Patient is medically stable for discharge. Patient will be given a script for the following medication. Please take the medication as instructed. 1. Cipro 500mg take one tablet with breakfast and 1 tablet with dinner for a total of 12 days Please take an over the counter probiotic as this will lessen the side effects associated with the antibiotic (Cipro). Please take an over the counter probiotic 2 hours AFTER taking antibiotic. Please continue the antibiotic for an additional 30 days after completing the antiobiotic course. This means you should take an antiobiotic twice a day for a total of 42 days. Please avoid doing any strenuous exercise, heavy lifting, or climbing excessive stairs while on this antibiotic as one of the side-effec is tendon rupture. Please establish yourself with a Primary Care Doctor. One can be attained at the [facility] which is located in the [facility]. Please follow-up with a Primary Care Doctor within 1 week. [facility] [phone] [place] [address] If symptoms worsen or return please go to your nearest emergency department. Referrals: [facility] [Outside] <Jan Desai - Last Filed: 06/01/17 19:41> Provider - Provider Date of Admission: 05/29/17 23:14 Attending physician: Gasper Anne MD Time Spent in preparation of Discharge (in minutes): 40 Hospital Course - Lab Results Lab Results: Micro Results 05/29/17 23:00 Blood Blood Culture - Preliminary NO GROWTH AFTER 48 HOURS 05/29/17 22:30 Blood Blood Culture - Preliminary NO GROWTH AFTER 48 HOURS 05/29/17 20:39 Urine,Clean Catch Urine Culture - Final Escherichia Coli Most Recent Lab Values WBC 6.6 K/uL (4.8-10.8) 06/01/17 07:08 RBC 3.12 Mil/uL (3.80-5.20) L 06/01/17 07:08 Hgb 9.7 g/dL (11.0-16.0) L 06/01/17 07:08 Hct 28.3 % (34.0-47.0) L 06/01/17 07:08 MCV 90.6 fL (81.0-99.0) 06/01/17 07:08 MCH 31.0 pg (27.0-31.0) 06/01/17 07:08 MCHC 34.3 g/dL (33.0-37.0) 06/01/17 07:08 RDW 14.1 % (11.5-14.5) 06/01/17 07:08 Plt Count 169 K/uL (130-400) 06/01/17 07:08 MPV 9.5 fL (7.2-11.7) 06/01/17 07:08 Neut % (Auto) 78.9 % (50.0-75.0) H 06/01/17 07:08 Lymph % (Auto) 10.5 % (20.0-40.0) L 06/01/17 07:08 Trigg % (Auto) 9.7 % (0.0-10.0) 06/01/17 07:08 Eos % (Auto) 0.5 % (0.0-4.0) 06/01/17 07:08 Baso % (Auto) 0.4 % (0.0-2.0) 06/01/17 07:08 Neut # (Auto) 5.2 K/uL (1.8-7.0) 06/01/17 07:08 Lymph # (Auto) 0.7 K/uL (1.0-4.3) L 06/01/17 07:08 Trigg # (Auto) 0.6 K/uL (0.0-0.8) 06/01/17 07:08 Eos # (Auto) 0.0 K/uL (0.0-0.7) 06/01/17 07:08 Baso # (Auto) 0.0 K/uL (0.0-0.2) 06/01/17 07:08 Neutrophils % (Manual) 89 % (50-75) H 05/31/17 08:38 Band Neutrophils % 1 % (0-2) 05/31/17 08:38 Lymphocytes % (Manual) 6 % (20-40) L 05/31/17 08:38 Monocytes % (Manual) 3 % (0-10) 05/31/17 08:38 Basophils % (Manual) 1 % (0-2) 05/31/17 08:38 Platelet Estimate Normal (NORMAL) 05/31/17 08:38 Large Platelets Present 05/29/17 19:41 RBC Morphology Normal 05/30/17 07:53 Hypochromasia (manual) Slight 05/31/17 08:38 Poikilocytosis (manual Slight 05/31/17 08:38 Anisocytosis (manual) Slight 05/31/17 08:38 Microcytosis (manual) Slight 05/29/17 19:41 Macrocytosis (manual) Slight 05/29/17 19:41 Sodium 138 mmol/L (132-148) 06/01/17 07:08 Potassium 3.6 mmol/L (3.6-5.2) 06/01/17 07:08 Chloride 104 mmol/L (98-107) 06/01/17 07:08 Carbon Dioxide 21 mmol/L (22-30) L 06/01/17 07:08 Anion Gap 16 (10-20) 06/01/17 07:08 BUN 4 mg/dL (7-17) L 06/01/17 07:08 Creatinine 0.8 mg/dL (0.7-1.2) 06/01/17 07:08 Est GFR ( Amer) > 60 06/01/17 07:08 Est GFR (Non-Af Amer) > 60 06/01/17 07:08 POC Glucose (mg/dL) 116 mg/dL (65-110) H 05/29/17 23:51 Random Glucose 93 mg/dL (65-105) 06/01/17 07:08 Lactic Acid 1.9 mmol/L (0.7-2.1) 05/30/17 00:04 Calcium 8.5 mg/dl (8.6-10.4) L 06/01/17 07:08 Phosphorus 3.9 mg/dL (2.5-4.5) 06/01/17 07:08 Magnesium 1.9 mg/dL (1.6-2.3) 06/01/17 07:08 Total Bilirubin 0.4 mg/dL (0.2-1.3) 06/01/17 07:08 AST 28 U/L (14-36) 06/01/17 07:08 ALT 50 U/L (9-52) 06/01/17 07:08 Alkaline Phosphatase 91 U/L (38-126) 06/01/17 07:08 Total Protein 6.4 g/dL (6.3-8.3) 06/01/17 07:08 Albumin 3.2 g/dL (3.5-5.0) L 06/01/17 07:08 Globulin 3.2 gm/dL (2.2-3.9) 06/01/17 07:08 Albumin/Globulin Ratio 1.0 (1.0-2.1) 06/01/17 07:08 Lipase 75 U/L (23-300) 05/29/17 19:41 Procalcitonin 0.33 NG/ML (0.19-0.49) 05/31/17 08:38 Urine Color Red (YELLOW) 05/29/17 19:41 Urine Clarity Hazy (Clear) 05/29/17 19:41 Urine pH 7.0 (5.0-8.0) 05/29/17 19:41 Ur Specific [place] 1.006 (1.003-1.030) 05/29/17 19:41 Urine Protein 1+ mg/dL (NEGATIVE) H 05/29/17 19:41 Urine Glucose (UA) Normal mg/dL (Normal) 05/29/17 19:41 Urine Ketones Trace mg/dL (NEGATIVE) 05/29/17 19:41 Urine Blood 1+ (NEGATIVE) H 05/29/17 19:41 Urine Nitrate Negative (NEGATIVE) 05/29/17 19:41 Urine Bilirubin Negative (NEGATIVE) 05/29/17 19:41 Urine Urobilinogen Normal mg/dL (0.2-1.0) 05/29/17 19:41 Ur Leukocyte Esterase 2+ Anitra/uL (Negative) H 05/29/17 19:41 Urine WBC (Auto) 119 /hpf (0-5) H 05/29/17 19:41 Urine RBC (Auto) 4 /hpf (0-3) H 05/29/17 19:41 Ur Squamous Epith Cells 5 /hpf (0-5) 05/29/17 19:41 Urine Bacteria Rare (<OCC) 05/29/17 19:41 Urine HCG, Qual Negative (NEGATIVE) 05/29/17 19:41 Hepatitis A IgM Ab Negative (NEGATIVE) 05/31/17 10:59 Hep Bs Antigen Negative (NEGATIVE) 05/31/17 10:59 Hep B Core IgM Ab Negative (NEGATIVE) 05/31/17 10:59 Hepatitis C Antibody Negative (NEGATIVE) 05/31/17 10:59 HIV 1&2 Antibody Screen Negative (NEGATIVE) 05/31/17 10:59 Attending/Attestation - Attestation I have personally seen and examined this patient.: Yes I have fully participated in the care of the patient.: Yes I have reviewed all pertinent clinical information, including history, physical exam and plan: Yes Notes (Text): 06/01/17 19:40 Patient was seen examined shortly after resident. Exam, assessment and plan, and discharge instructions were gone over with the resident. Jan Desai D.O.
[2017-06-01] MEDS ORDERED: Influenza Vaccine 60 mcg/0.5 mL SYR (4YR UP) IM ONE (11:52)
[2017-06-01] MEDS ORDERED: Pneumococcal 23-Valent Vaccine IM ONE (11:52)
== END 2017-06-01 16:10 | disposition home or self-care (01) | DRG 690 ==
LOC: C.ER 19:14 → C.9E 23:14 → C.3T 23:47
PROVIDERS: ADMIT Family Medicine; ATTEND Family Medicine
DX: N10 Acute pyelonephritis (principal); E87.6 Hypokalemia; F31.9 Bipolar disorder, unspecified; Z86.11 Personal history of tuberculosis; F17.210 Nicotine dependence, cigarettes, uncomplicated; I10 Essential (primary) hypertension

== ENCOUNTER 2017-11-04 10:00 | Emergency (ER) | payer OTHER ==
[2017-11-04 10:06] VITALS: TEMP 97.5
--- NOTE | 2017-11-04 10:29 | C.PDOC ---
History Of Present Illness <Aubree Morse - Last Filed: 11/04/17 10:47> <Estela Christensen - Last Filed: 11/04/17 12:00> CC: Patient is a 31 year old female, LMP (10/28/17) with past medical history of HTN , bipolar disorder, anxiety, and insomnia, who presents with generalized body pain and urinary symptoms for 2 weeks. Patient admits to dysuria, pressure upon urination, subjective fever, nausea, generalized body ache, headache lower abdominal pain, diarrhea X2 days and hematuria X2 days. Patient denies chills, hematochezia, SOB, palpitation and flank pain. Patient states that she practices appropriate cleaning hygiene when uses the bathroom and after sexual intercourse. Patient was admitted 05/30/17 for complicated UTI. (FerminElaina crowderkrzysztof Minoo) <Aubree Morse - Last Filed: 11/04/17 10:47> History Per: Patient History/Exam Limitations: no limitations Onset/Duration Of Symptoms: Days Current Symptoms Are (Timing): Still Present Severity: Moderate Pain Scale Rating Of: 4 Location: Generalized body ache and lower abdominal discomfort Quality: Pressure <Elaina Christensenhuakarolina Hennessy - Last Filed: 11/04/17 12:00> Time Seen by Provider: 11/04/17 10:12 Chief Complaint (Nursing): Flu-like Symptoms Past Medical History - Medical History PMH: Anemia, Bipolar Disorder, Depression, HTN Denies: Chronic Kidney Disease Surgical History: Family History: States: Unknown Family Hx - Social History Hx Tobacco Use: Yes ("some days") Hx Alcohol Use: Yes (socially) Hx Substance Use: No - Immunization History Hx Tetanus Toxoid Vaccination: Yes Hx Influenza Vaccination: Yes Hx Pneumococcal Vaccination: No <Elaina Christensenkrzysztof Minoo - Last Filed: 11/04/17 12:00> Vital Signs: Last Vital Signs Temp 97.5 F L 11/04/17 10:07 Pulse 68 11/04/17 10:07 Resp 20 11/04/17 10:07 BP 125/80 11/04/17 10:07 Pulse Ox 99 11/04/17 10:47 Review Of Systems Constitutional: Positive for: Fever, Malaise. Negative for: Chills, Sweats, Weakness, Weight loss Eyes: Negative for: Pain, Vision Change ENT: Negative for: Ear Pain, Ear Discharge, Nose Congestion, Mouth Pain Cardiovascular: Positive for: Chest Pain. Negative for: Palpitations Respiratory: Negative for: Cough, Shortness of Breath, SOB with Excertion, Wheezing Gastrointestinal: Positive for: Nausea, Abdominal Pain, Diarrhea. Negative for : Vomiting, Constipation, Hematochezia, Rectal Pain Genitourinary: Positive for: Dysuria, Hematuria. Negative for: Vaginal Discharge, Vaginal Bleeding, Rash Musculoskeletal: Negative for: Neck Pain, Shoulder Pain, Back Pain, Hand Pain Skin: Negative for: Rash Neurological: Positive for: Headache. Negative for: Numbness, Confusion, Seizures, Dizziness <Estela Christensen - Last Filed: 11/04/17 12:00> Physical Exam - Physical Exam Appears: No Acute Distress Skin: Normal Color, Warm, No Diaphoretic, No Pale, No Rash Head: Atraumatic, Normacephalic, No Tenderness Eye(s): bilateral: EOMI Nose: Normal Oral Mucosa: Moist Neck: Normal, Normal ROM Cardiovascular: Rhythm Regular Respiratory: Normal Breath Sounds, No Decreased Breath Sounds, No Accessory Muscle Use Gastrointestinal/Abdominal: Normal Exam, Bowel Sounds, Soft, Tenderness (Lower abdominal tenderness on palpation ), No Organomegaly, No Mass, No Rebound Back: Normal Inspection, No CVA Tenderness, No Decreased ROM, No Muscle Spasm, No Paraspinal Tenderness Extremity: Normal ROM, No Tenderness, No Pedal Edema Extremity: Bilateral: Atraumatic Neurological/Psych: Oriented x3, Normal Speech <Estela Christensen - Last Filed: 11/04/17 12:00> ED Course And Treatment O2 Sat by Pulse Oximetry: 99 <Estela Christensen - Last Filed: 11/04/17 12:00> Supervising Attending Note - Supervising Attending Note Comment: RESIDENT DR CHRISTENSEN - Attestation: I have personally seen and examined this patient.: Yes I have fully participated in the care of the patient.: Yes I have reviewed all pertinent clinical information, including history, physical exam and plan: Yes <Aubree Morse - Last Filed: 11/04/17 10:47> <Estela Christensen - Last Filed: 11/04/17 12:00> - Notes: Notes:: UTI SX X 2 WEEKS. SUBJ FEVER, NAUSEA. LMP 8/16. OCC PELVIC PAIN. EXAM ABOVE ( Aubree Morse) Disposition <LitoAubree - Last Filed: 11/04/17 10:47> Discussed With : Aubree Morse - Disposition Disposition Time: 11:49 <Estela Christensen - Last Filed: 11/04/17 12:00> - Disposition Disposition: HOME/ ROUTINE Condition: GOOD Additional Instructions: Please discharge patient home Please take the following medications: - Macrobid (Nitrofurantoin) 100mg PO Q12H for 7 days - Pyridium 100mg PO three times per day for 2 days. Please note that you may see orange-tinged color urine with this medication Please increase water intake Please continue to practice clean/ proper hygiene after bathroom use and after sexual intercourse Please follow up with your primary care physician in 1-2 days Please take care Prescriptions: Nitrofurantoin Macrocrystals [Macrobid] 100 mg PO Q12H 10 Days #20 cap Phenazopyridine HCl [Pyridium] 100 mg PO TID 2 Days #6 tab Forms: [facility] (Romanian), General Discharge Instructions - Clinical Impression Clinical Impression: Urinary symptom or sign
[2017-11-04 11:35] LABS: URINE BILIRUBIN NEGATIVE (NEGATIVE); URINE CLARITY Clear (Clear); URINE COLOR YELLOW (YELLOW); URINE GLUCOSE (UA) Normal (Normal)
[2017-11-04 11:38] LABS: URINE BLOOD NEGATIVE (NEGATIVE); URINE PROTEIN NEGATIVE (NEGATIVE)
[2017-11-04 11:39] LABS: SQUAMOUS EPITHIAL 5 /hpf (0-5); URINE BACTERIA MANY (<OCC); URINE LEUKOCYTE ESTERASE SMALL Leu/uL (Negative); URINE UROBILINOGEN 0.2 mg/dL (0.2-1.0)
[2017-11-04 12:16] VITALS: BP 123/73; PULSE 65; RESP 18; O2SAT 100
== END 2017-11-04 12:16 | disposition home or self-care (01) ==
LOC: C.ER 10:00
DX: R30.0 Dysuria (principal)